=== PATIENT | female | born 1965 | race Caucasian/White ===

== ENCOUNTER 2018-02-05 20:08 | Emergency (ER) | payer MEDICARE, MEDICAID ==
[2018-02-05] MEDS ORDERED: IPRATROPIUM/ALBUTEROL (0.5MG/3MG) NEB INH ONE (21:16)
[2018-02-05] MEDS ORDERED: PREDNISONE 20 MG TAB PO ONE (21:16)
--- NOTE | 2018-02-05 21:24 | Emergency Department Record ---
History of Present Illness - General Chief Complaint: Cough Stated Complaint: CHEST CONGESTION,LT ANKLE PAIN Time Seen by Provider: 02/05/18 21:16 Source: Patient Mode of Arrival: Ambulatory Limitations: No limitations - History of Present Illness Initial Comments: 52 yo female presents with recurrent cough, wheezing, and feeling of shortness of breath. She was diagnosed one month ago with pneumonia with asthma like symptoms. She initially improved. Her cough returned about 5 days ago. It is non-productive. No fever or chills. She completed her antibiotics. She states it feels tight in between when she uses her nebulizer. She does get relief but it is only temporary. Additionally she twisted her ankle walking on uneven ground 2 days ago and has left lateral ankle tenderness and swelling. She has pain with weight bearing. MD Complaint: Cough, Nasal congestion, Other (twisted her ankle) -: Days(s) (5) Severity: Moderate Quality: Other Consistency: Intermittent Improves With: Other (Nebulizer temporarily) Worsens With: Other (coughing) Associated Symptoms: Cough, Nasal congestion, Rhinorrhea, Shortness of breath Treatments Prior to Arrival: Other (Home medications) - Related Data Home Medications Medication Instructions Recorded Confirmed Last Taken Benzonatate [Tessalon Perles] 100 mg PO TID PRN 02/05/18 02/05/18 Unknown Clonazepam [Klonopin] 0.5 mg PO TID PRN 02/05/18 02/05/18 Unknown Diphenhydramine HCl [Benadryl] 25 mg PO BID PRN 02/05/18 02/05/18 Unknown Hydroxyzine Pamoate [Vistaril] 50 mg PO BID 02/05/18 02/05/18 Unknown Mometasone Furoate [Nasonex] 17 gm IN DAILY 02/05/18 02/05/18 Unknown Montelukast Sodium 10 mg PO DAILY 02/05/18 02/05/18 Unknown Nystatin [Nystop] 100 units TOP BID 02/05/18 02/05/18 Unknown Omeprazole 40 mg PO BID 02/05/18 02/05/18 Unknown Oxcarbazepine [Trileptal] 300 mg PO BID 02/05/18 02/05/18 Unknown Oxybutynin Chloride [Ditropan Xl] 10 mg PO DAILY 02/05/18 02/05/18 Unknown Pnv,Calcium 72/Iron/Folic Acid 1 tab PO DAILY 02/05/18 02/05/18 Unknown [Preplus Ca-Fe 27 mg-FA 1 mg Tb] Pregabalin [Lyrica] 75 mg PO BID 02/05/18 02/05/18 Unknown Pregabalin [Lyrica] 150 mg PO BID 02/05/18 02/05/18 Unknown Promethazine HCl [Phenergan] 12.5 mg PO QID 02/05/18 02/05/18 Unknown Riboflavin [Vitamin B-2] 100 mg PO DAILY 02/05/18 02/05/18 Unknown Rizatriptan Benzoate [[employer]] 10 mg PO DAILY PRN 02/05/18 02/05/18 Unknown Sulindac 200 mg PO BID 02/05/18 02/05/18 Unknown Vortioxetine Hydrobromide 5 mg PO DAILY 02/05/18 02/05/18 Unknown [Trintellix] Previous Rx's Medication Instructions Recorded Azithromycin [Zithromax] 250 mg PO DAILY #4 tab 02/05/18 Prednisone [Prednisone 20Mg] 20 mg PO DAILY #5 tab 02/05/18 Allergies Allergy/AdvReac Type Severity Reaction Status Date / Time clarithromycin [From Biaxin] Allergy PT UNSURE Verified 02/05/18 20:46 OF REACTION codeine Allergy PT UNSURE Verified 02/05/18 20:46 OF REACTION doxycycline Allergy PT UNSURE Verified 02/05/18 20:46 OF REACTION ketorolac [From Toradol] Allergy PT UNSURE Verified 02/05/18 20:46 OF REACTION lamotrigine [From Lamictal] Allergy PT UNSURE Verified 02/05/18 20:46 OF REACTION lithium Allergy PT UNSURE Verified 02/05/18 20:46 OF REACTION Travel Screening - Travel/Exposure Within Last 30 Days Have you traveled within the last 30 days?: No - Travel/Exposure Within Last Year Have you traveled outside the [place] in the last year?: No - Additonal Travel Details Have you been exposed to anyone with a communicable illness?: No - Travel Symptoms Symptom Screening: None Review of Systems Constitutional: Denies: Chills, Fever, Night sweats, Weakness Eyes: Denies: Eye discharge ENT: Reports: Congestion. Denies: Ear pain, Epistaxis Respiratory: Reports: Cough, Dyspnea, Wheezes. Denies: Hemoptysis, Stridor Cardiovascular: Reports: Dyspnea on exertion, Edema (left ankle after twisting ) . Denies: Chest pain, Palpitations, Syncope Endocrine: Denies: Fatigue Gastrointestinal: Denies: Abdominal pain, Diarrhea, Nausea, Vomiting Genitourinary: Denies: Dysuria, Urgency Musculoskeletal: Denies: Arthralgia, Back pain, Joint swelling, Myalgia Skin: Denies: Bruising, Change in color, Rash Neurological: Denies: Headache Psychiatric: Denies: Anxiety Hematological/Lymphatic: Denies: Blood Clots, Easy bleeding, Easy bruising, Swollen glands Past Medical History - SOCIAL HISTORY Smoking Status: Never smoker Alcohol Use: None Drug Use: None - RESPIRATORY Hx Respiratory Disorders: Yes Hx Bronchitis: Yes (01/2018) Hx Pneumonia: Yes (01/2018) - CARDIOVASCULAR Hx Cardio Disorders: No - NEURO Hx Neuro Disorders: No - GI Hx GI Disorders: Yes Hx Reflux: Yes Hx Obstructive Bowel: Yes - Hx Bladder Problem: Yes Hx Kidney Stones: Yes - ENDOCRINE Hx Endocrine Disorders: No - MUSCULOSKELETAL Comment:: keegan ankle fusion - PSYCH Hx Psych Problems: Yes - HEMATOLOGY/ONCOLOGY Hx Hematology/Oncology Disorders: No Family Medical History Any Significant Family History?: No Physical Exam - General General Appearance: Alert, Oriented x3, Cooperative, No acute distress Limitations: No limitations - Head Head exam: Atraumatic, Normal inspection - Eye Eye exam: Normal appearance. negative: Conjunctival injection, Scleral icterus - ENT ENT exam: Normal exam Ear exam: Normal external inspection Nasal Exam: Normal inspection Mouth exam: Normal external inspection Teeth exam: Normal inspection - Neck Neck exam: Normal inspection, Full ROM. negative: Tenderness - Respiratory Respiratory exam: Decreased breath sounds, Rhonchi, Wheezes. negative: Normal lung sounds bilaterally, Accessory muscle use, Chest wall tenderness, Prolonged expiratory, Rales, Respiratory distress, Stridor - Cardiovascular Cardiovascular Exam: Regular rate, Normal rhythm, Normal heart sounds Peripheral Pulses: 2+: Radial (R), Radial (L), Dorsalis Pedis (L) - GI/Abdominal GI/Abdominal exam: Soft. negative: Tenderness - Rectal Rectal exam: Deferred - exam: Deferred - Extremities Extremities exam: Full ROM, Joint swelling, Normal capillary refill, Tenderness. negative: Normal inspection Image of Full Body: 1 - lateral ankle tenderness and mild swelling, stable ankle - Back Back exam: Denies: CVA tenderness (R), CVA tenderness (L) - Neurological Neurological exam: Alert, Normal gait, Oriented X3, Reflexes normal - Psychiatric Psychiatric exam: Normal affect, Normal mood - Skin Skin exam: Dry, Intact, Normal color, Warm Course Vital Signs 02/05/18 20:34 Temperature 98.1 F Pulse Rate 77 Respiratory 18 Rate Blood Pressure 149/79 Pulse Ox 100 - Reevaluation(s) Reevaluation #1: ekg 2040 NSR, rate 65, intervals OH 220, axis normal, ST normal, no acute changes 02/05/18 21:21 02/05/18 21:22 No acute changes on the vitals CXR, Ankle XR and Duoneb ordered 02/05/18 22:38 The patient was much improved after the Duoneb The CXR demonstrated Left perihilar streaking infiltrate. The ankle demonstrated and anterior deformity likely chronic with degenerative changes I discussed the results with the patient We discussed the home care, reasons for immediate re-evaluation and follow closely with her PCP 02/05/18 23:52 Disposition Disposition: Discharge Clinical Impression: Bronchitis Ankle sprain Qualifiers: Encounter type: initial encounter Involved ligament of ankle: unspecified ligament Laterality: left Qualified Code(s): S93.402A - Sprain of unspecified ligament of left ankle, initial encounter Disposition: Home, Self-Care Condition: (1) Good Instructions: Ankle Sprain (ED), Acute Bronchitis (ED) Additional Instructions: Ice the ankle to minimize swelling Take the antibiotic as directed Call your doctor tomorrow to schedule a recheck this week of your symptoms. Prescriptions: Azithromycin [Zithromax] 250 mg PO DAILY #4 tab Prednisone [Prednisone 20Mg] 20 mg PO DAILY #5 tab Forms: Patient Portal Access Time of Disposition: 22:41 Quality - Quality Measures Quality Measures: N/A - Blood Pressure Screening Does Patient Have Any of the Following: Active Dx of HTN Blood Pressure Classification: Pre-Hypertensive BP Reading Systolic Measurement: 124 Diastolic Measurement: 72 Screening for High Blood Pressure: Patient Exclusion, Hx of HTN [G9744]
[2018-02-05] MEDS ORDERED: AZITHROMYCIN 500 MG TABLET PO ONE (22:38)
--- NOTE | 2018-02-06 14:43 | RADIOLOGY REPORT ---
EXAM: CHEST, TWO VIEWS HISTORY: UNPRODUCTIVE COUGH FOR FIVE DAYS. TECHNIQUE: AP upright and lateral views of the chest were obtained. Comparison: Two view chest 08/28/11. FINDINGS: The heart size is within normal limits. Mild thoracic curve to the right as before. Slightly coarsened interstitial markings particularly on the left where there is probably some mild perihilar streaky infiltrate. No focal acute alveolar infiltrate identified and no pleural effusion or pneumothorax evident. IMPRESSION: THERE IS PROBABLY SOME MILD STREAKY PERIHILAR INFILTRATE ON THE LEFT. MILD THORACIC CURVE TO THE RIGHT BEFORE. JOB NUMBER: [id number] MTDD
--- NOTE | 2018-02-06 14:48 | RADIOLOGY REPORT ---
EXAM: LEFT ANKLE HISTORY: PATIENT TWISTED LEFT ANKLE TWO DAYS AGO WITH PAIN. TECHNIQUE: Three views of the left ankle were obtained. Comparison: No prior left ankle series. Encounter: Initial. FINDINGS: There is some diffuse soft tissue prominence about the ankle. Degenerative arthritis at the left ankle. There is some chronic appearing deformity along the anterior aspect of the ankle joint is seen in the lateral view. Comparison with old films would be useful to confirm a chronic appearance of this, however, no definite acute fracture is identified and no actual dislocation of the ankle is seen. There does appear to be some diffuse osteopenia suggesting osteoporosis. IMPRESSION: 1. SOME OSTEOPENIA. 2. DEGENERATIVE ARTHRITIS IN THE LEFT ANKLE WITH SOME CHRONIC APPEARING DEFORMITY ALONG THE ANTERIOR ASPECT OF THE ANKLE JOINT IN PARTICULAR. RECOMMEND COMPARISON WITH OLD FILMS. 3. NO DEFINITE ACUTE FRACTURE OR DISLOCATION OF THE ANKLE EVIDENT. 4. THERE IS PROBABLY SOME DIFFUSE SOFT TISSUE SWELLING AT THE ANKLE. JOB NUMBER: [id number] MTDD
== END 2018-02-05 23:06 | disposition home or self-care (01) ==
LOC: ER 20:08
DX: S93.402A Sprain of unspecified ligament of left ankle, initial encounter (principal); J20.9 Acute bronchitis, unspecified; R06.02 Shortness of breath; X50.1XXA Overexertion from prolonged static or awkward postures, initial encounter; Y93.01 Activity, walking, marching and hiking
CPT/HCPCS: 29425; 99284 ×2; 73610; 71046; 94640; 93005; 93010; J7512

== ENCOUNTER 2019-10-26 16:41 | Emergency (ER) | payer MEDICARE, MEDICAID ==
--- NOTE | 2019-10-26 17:00 | Emergency Department Record ---
History of Present Illness - General Chief Complaint: Cough Stated Complaint: COUGH Time Seen by Provider: 10/26/19 16:45 Source: Patient Mode of Arrival: Ambulatory Limitations: No limitations - History of Present Illness Initial Comments: The patient is here due to a one day hx of cough, congestion, mild ST and hoarse voice. She denies any fever, SOB, ARMIDA, or sputum production. MD Complaint: Cough, Nasal congestion, Rhinorrhea Onset/Timin -: Days(s) Severity scale (1-10): 6 Consistency: Constant - Related Data Previous Rx's Medication Instructions Recorded Albuterol Sulfate [Proair Hfa] 2 puff IH QID PRN #1 inhaler 10/26/19 Prednisone [Prednisone 20Mg] 40 mg PO DAILY #10 tab 10/26/19 Allergies Allergy/AdvReac Type Severity Reaction Status Date / Time clarithromycin [From Biaxin] Allergy PT UNSURE Verified 02/05/18 20:46 OF REACTION codeine Allergy PT UNSURE Verified 02/05/18 20:46 OF REACTION doxycycline Allergy PT UNSURE Verified 02/05/18 20:46 OF REACTION ketorolac [From Toradol] Allergy PT UNSURE Verified 02/05/18 20:46 OF REACTION lamotrigine [From Lamictal] Allergy PT UNSURE Verified 02/05/18 20:46 OF REACTION lithium Allergy PT UNSURE Verified 02/05/18 20:46 OF REACTION Travel Screening - Travel/Exposure Within Last 30 Days Have you traveled within the last 30 days?: No Review of Systems Constitutional: Reports: Malaise. Denies: Chills, Fever Eyes: Denies: Eye discharge ENT: Reports: Congestion Respiratory: Reports: Cough. Denies: Dyspnea Past Medical History - SOCIAL HISTORY Smoking Status: Never smoker - RESPIRATORY Hx Respiratory Disorders: Yes Hx Bronchitis: Yes (01/2018) Hx COPD: Yes Hx Pneumonia: Yes (01/2018) - CARDIOVASCULAR Hx Cardio Disorders: No - NEURO Hx Neuro Disorders: No - GI Hx GI Disorders: Yes Hx Reflux: Yes Hx Obstructive Bowel: Yes - Hx Bladder Problem: Yes Hx Kidney Stones: Yes - ENDOCRINE Hx Endocrine Disorders: No - MUSCULOSKELETAL Comment:: keegan ankle fusion - PSYCH Hx Psych Problems: Yes - HEMATOLOGY/ONCOLOGY Hx Hematology/Oncology Disorders: No Family Medical History Any Significant Family History?: No Physical Exam - General General Appearance: Alert, Oriented x3, Cooperative, No acute distress - Head Head exam: Atraumatic, Normocephalic - Eye Eye exam: Normal appearance, PERRL - ENT Throat exam: Tonsillar erythema (trace.). negative: Normal inspection, Tonsillomegaly, Tonsillar exudate - Neck Neck exam: Normal inspection, Full ROM. negative: Tenderness - Respiratory Respiratory exam: Normal lung sounds bilaterally. negative: Accessory muscle use, Rales, Respiratory distress, Rhonchi, Stridor, Wheezes - Cardiovascular Cardiovascular Exam: Regular rate, Normal rhythm, Normal heart sounds - GI/Abdominal GI/Abdominal exam: Soft, Normal bowel sounds. negative: Tenderness - Extremities Extremities exam: Normal inspection, Full ROM, Normal capillary refill. negative: Tenderness - Neurological Neurological exam: Alert, Normal gait. negative: Abnormal gait, Motor sensory deficit - Psychiatric Psychiatric exam: negative: Anxious Course Vital Signs 10/26/19 16:52 Temperature 98.6 F Pulse Rate [ 101 H Pulse Ox Probe] Respiratory 20 Rate Blood Pressure 171/95 [Left Arm] Pulse Ox 98 - Reevaluation(s) Reevaluation #1: I did discuss the neg Flu test with the patient and the fact the xray is neg. She appears to have a viral URI. We will place the patient on an inhaller and a short course of oral steroids and have her F/U with her PCP next week. 10/26/19 17:26 Medical Decision Making - Data Complexity MDM Data: Labs Ordered and/or Reviewed (Flu: neg.), X-Ray Ordered and/or Reviewed - Radiology Data Radiology results: Report reviewed (CXR: Neg.) Disposition Disposition: Discharge Clinical Impression: URI (upper respiratory infection) Qualifiers: URI type: croup Qualified Code(s): J05.0 - Acute obstructive laryngitis [croup] Disposition: Home, Self-Care Condition: (2) Stable Instructions: Cold Symptoms (ED) Additional Instructions: Please take the Inhaller and Prednisone as directed and use an OTC cough and cold medicine. Please see your doctor for recheck on Tuesday and return to the ER for any worsening issues. Prescriptions: Prednisone [Prednisone 20Mg] 40 mg PO DAILY #10 tab Albuterol Sulfate [Proair Hfa] 2 puff IH QID PRN #1 inhaler PRN Reason: Cough And Difficulty Breathing Forms: Patient Portal Access Time of Disposition: 17:28 Quality - Quality Measures Quality Measures: N/A - Blood Pressure Screening View Details: Yes Does Patient Have Any of the Following: Active Dx of HTN Blood Pressure Classification: Hypertensive Reading Systolic Measurement: 171 Diastolic Measurement: 95 Screening for High Blood Pressure: Patient Exclusion, Hx of HTN [G9744]
[2019-10-26 17:20] LABS: INFLUENZA A NEGATIVE (NEGATIVE); INFLUENZA B NEGATIVE (NEGATIVE)
--- NOTE | 2019-10-26 17:43 | RADIOLOGY REPORT ---
EXAMINATION: Two View Chest Radiographs EXAM DATE: 10/26/2019 5:21 PM TECHNIQUE: Frontal and lateral views INDICATION: Acute cough and wheezing COMPARISON: 02/05/2018 FINDINGS: 2 views. Clear lungs. No visible pneumothorax or pleural fluid. The heart and mediastinum have a norm al appearance. Stable mild rightward convexity midthoracic scoliosis. IMPRESSION: No sign of active cardiopulmonary disease. Dictated by: Otto Maurer MD on 10/26/2019 5:39 PM. .
== END 2019-10-26 17:59 | disposition home or self-care (01) ==
LOC: ER 16:41
DX: J05.0 Acute obstructive laryngitis [croup] (principal); J44.9 Chronic obstructive pulmonary disease, unspecified; I10 Essential (primary) hypertension
CPT/HCPCS: 71046; 87400; 99283

== ENCOUNTER 2019-10-28 00:15 | Emergency (ER) | payer MEDICARE, MEDICAID ==
--- NOTE | 2019-10-28 00:34 | Emergency Department Record ---
History of Present Illness - General Stated complaint: LEGS RED AND SWOLLEN Time Seen by Provider: 10/28/19 00:16 Source: Patient Mode of Arrival: Ambulatory Limitations: No limitations - History of Present Illness Initial comments: 54 yo female presents with a concern about left leg pain and bruising bilateral lower legs (L > R). The onset was this morning. She noted a few superficial bruises just today. She does not recall any injury. She has had about 2-3 days of congestion, hoarse voice, and cough that remains non productive. She reports a history of COPD. She has had surgery on that leg twice in the last one year. Her last surgery was March of 2019. She states she frequently get swelling and pain in that leg and ankle. She has a feeling of her heart racing at times. CXR was negative on 10/26/2019 in the ED. She was sent home on Prednisone and Albuterol. No fever. PCP is Dr Colmenares in [place]. She denies a history of prior DVT or PE. She talked to the sanitation lead doctor for her PCP at 11pm and was instructed to go to the ER for evaluation. MD Complaint: Extremity pain, Extremity swelling Location: Left, Lower Leg -: Yes Myalgia Radiation: Distal Quality: Aching Consistency: Constant Improves with: Nothing Worsens with: Palpation Associated Symptoms: Myalgias - Related Data Previous Rx's Medication Instructions Recorded Albuterol Sulfate [Proair Hfa] 2 puff IH QID PRN #1 inhaler 10/26/19 Prednisone [Prednisone 20Mg] 40 mg PO DAILY #10 tab 10/26/19 Allergies Allergy/AdvReac Type Severity Reaction Status Date / Time clarithromycin [From Biaxin] Allergy PT UNSURE Verified 02/05/18 20:46 OF REACTION codeine Allergy PT UNSURE Verified 02/05/18 20:46 OF REACTION doxycycline Allergy PT UNSURE Verified 02/05/18 20:46 OF REACTION ketorolac [From Toradol] Allergy PT UNSURE Verified 02/05/18 20:46 OF REACTION lamotrigine [From Lamictal] Allergy PT UNSURE Verified 02/05/18 20:46 OF REACTION lithium Allergy PT UNSURE Verified 02/05/18 20:46 OF REACTION Review of Systems Constitutional: Reports: Malaise, Weakness. Denies: Chills, Fever Eyes: Denies: Eye discharge ENT: Reports: Congestion. Denies: Epistaxis, Throat pain Respiratory: Reports: Cough, Wheezes. Denies: Dyspnea, Hemoptysis, Stridor Cardiovascular: Reports: Edema (Left lower leg), Palpitations. Denies: Chest pain, Syncope Endocrine: Denies: Fatigue, Polydipsia, Polyuria Gastrointestinal: Denies: Abdominal pain, Diarrhea, Nausea, Vomiting Genitourinary: Denies: Dysuria, Urgency Musculoskeletal: Reports: Myalgia. Denies: Arthralgia, Back pain, Neck pain Skin: Reports: Bruising. Denies: Change in color, Rash Neurological: Denies: Headache, Weakness Psychiatric: Denies: Anxiety Hematological/Lymphatic: Denies: Easy bleeding, Easy bruising Past Medical History - SOCIAL HISTORY Smoking Status: Never smoker Alcohol Use: None Drug Use: None - RESPIRATORY Hx Respiratory Disorders: Yes Hx Bronchitis: Yes (01/2018) Hx COPD: Yes Hx Pneumonia: Yes (01/2018) - CARDIOVASCULAR Hx Cardio Disorders: No - NEURO Hx Neuro Disorders: No - GI Hx GI Disorders: Yes Hx Reflux: Yes Hx Obstructive Bowel: Yes - Hx Bladder Problem: Yes Hx Kidney Stones: Yes - ENDOCRINE Hx Endocrine Disorders: No - MUSCULOSKELETAL Comment:: keegan ankle fusion - PSYCH Hx Psych Problems: Yes - HEMATOLOGY/ONCOLOGY Hx Hematology/Oncology Disorders: No Family Medical History Any Significant Family History?: No Family Hx Comment (NOT TO BE USED IN PLACE OF ITEMS BELOW): denies Physical Exam - General General Appearance: Alert, Oriented x3, Cooperative, No acute distress Limitations: No limitations - Head Head exam: Atraumatic, Normal inspection - Eye Eye exam: Normal appearance, PERRL. negative: Conjunctival injection, Scleral icterus - ENT ENT exam: Normal exam, Mucous membranes moist Ear exam: Normal external inspection Nasal Exam: Normal inspection Mouth exam: Normal external inspection Teeth exam: Other (No teeth) - Neck Neck exam: Normal inspection, Full ROM - Respiratory Respiratory exam: Normal lung sounds bilaterally. negative: Accessory muscle use, Decreased breath sounds, Prolonged expiratory, Rhonchi, Stridor, Wheezes - Cardiovascular Cardiovascular Exam: Regular rate, Normal rhythm, Normal heart sounds Peripheral Pulses: 2+: Radial (R), Radial (L) - GI/Abdominal GI/Abdominal exam: Soft. negative: Tenderness - Rectal Rectal exam: Deferred - exam: Deferred - Extremities Extremities exam: Calf tenderness (distal near the ankle), Full ROM, Joint swelling (left ankle), Normal capillary refill, Tenderness, Other (No definite asymmetry visually on examination except at the ankle. She has some tenderness at the ankle. This is in the area of her well healed surgical scars. No erythema). negative: Normal inspection, Pedal edema - Back Back exam: Denies: Normal inspection - Neurological Neurological exam: Alert, Oriented X3 - Psychiatric Psychiatric exam: Normal affect, Normal mood. negative: Agitated, Anxious - Skin Skin exam: Dry, Intact, Normal color, Warm Course Vital Signs 10/28/19 00:22 Temperature 98.1 F Pulse Rate [ 113 H Left] Respiratory 18 Rate Blood Pressure 137/107 [Left Arm] Pulse Ox 96 - Reevaluation(s) Reevaluation #1: 10/28/19 00:37 EKG #1: 00:29 Rate: 89 Rhythm: sinus [place]: normal Intervals: Qtc 477 ST segments: no acute abnormalities Prior: No changes from prior The calves were measured. No measurable difference from right to left calf. CXR on 10/26/2019 was negative for acute process 10/28/19 00:47 The CBC was reviewed The WBC is 10.4, the Plt Count is 404 (MCV is 75) No priors. 10/28/19 00:50 I was notified by the lab nurse that there will be significant delays in remainder of labs. 10/28/19 00:52 The D-Dimer was reviewed. It is negative at 0.44 The patient now informs me she was at [facility] about 2 weeks ago for evaluation. These records will be requested I discussed with the patient options at this time. I explained that her calves measure similar (within 1cm). There is not erythema. The small superficial bruises are on both legs and are non specific, few, small, and scattered. They are not indicative of DVT. I explained that her D-dimer is negative. She has chronic ankle pain and occasional swelling normally due to her prior surgery. My pretest probability for acute DVT was low and with a negative D-Dimer the options are DC after the other labs return or transfer to another hospital with US capabilities. With shared decision making she requests DC. She will return or be seen in the next 1-2 days if she has any concerns. 10/28/19 01:58 Records were obtained from [facility]. The patient had a post op visit with her orthopedic doctor on 10/24/2019. The same left ankle swelling was documented. Xray - no signs of hardware failure. Continue current level of activity. Follow up in 6 months. (Dr Johnson). The most recent Hgb was 10.9 Still delayed by lab downtime In light of the records that describe similar examination with chronic findings I believe this further decreases likelihood of DVT. 10/28/19 03:07 The BMP was reported K is 3.3 otherwise no acute changes. Medical Decision Making - Lab Data Result diagrams: 10/28/19 00:30 10/28/19 00:30 Disposition Disposition: Discharge Clinical Impression: Ankle pain, chronic, Ecchymosis Disposition: Home, Self-Care Condition: (1) Good Instructions: Acute Bronchitis (ED), Arthralgia (ED) Additional Instructions: Be seen or return in the next 1-2 days of you have any concerns about your legs Call you doctor to be seen early during the week for a recheck Be seen immediately if you are worse, redness develops, short of breath, chest pain Time of Disposition: 03:14 Quality - Quality Measures Quality Measures: N/A - Blood Pressure Screening Does Patient Have Any of the Following: No Blood Pressure Classification: Pre-Hypertensive BP Reading Systolic Measurement: 151 Diastolic Measurement: 80 Screening for High Blood Pressure: < Pre-Hypertensive BP, F/U Documented > [G8950] Pre-Hypertensive Follow-up Interventions: Referral to alternative/primary care provider.
[2019-10-28 00:42] LABS: ABSOLUTE NEUTROPHIL COUNT 5.19; BASO % 0.1 % (0-6); GRAN % 67.6 % (47-80); HEMOGLOBIN 10.4 gm/dl (11.6-16.0); LYMPH % 24.5 % (16-45); MEAN CELL VOLUME 75.6 fl (81-97); MEAN CORPUSCULAR HGB CONC 29.7 g/dl (32-36); MEAN PLATELET VOLUME 9.2 fl (7.4-10.4); MONO % 7.8 % (0-9); PLATELET COUNT 404 K/uL (130-400); RED BLOOD COUNT 4.63 M/uL (3.80-5.40); RED CELL DISTRIBUTION WIDTH 18.1 % (11.5-14.5); WHITE BLOOD COUNT W/O DIFF 7.7 K/uL (4.2-12.2)
[2019-10-28 00:45] LABS: MEAN CORPUSCULAR HEMOGLOBIN 22.4 pg (27-33)
[2019-10-28 00:53] LABS: PARTIAL THROMBOPLASTIN TIME 27.1 SECONDS (24.5-39.1); PROTHROMBIN TIME (PATIENT) 10.5 SECONDS (9.5-12.1)
[2019-10-28 02:59] LABS: BLOOD UREA NITROGEN 16 mg/dL (6-20); CREATININE 0.9 mg/dL (0.5-0.9); EST GLOMERULAR FILTRATION RATE > 60 mL/min
[2019-10-28 03:02] LABS: GLUCOSE,RANDOM 119 mg/dL (74-109)
[2019-10-28] MEDS ORDERED: POTASSIUM CHLORIDE 20 MEQ TABLET PO ONE (03:08)
== END 2019-10-28 03:22 | disposition home or self-care (01) ==
LOC: ER 00:15
DX: S90.02XA Contusion of left ankle, initial encounter (principal); M25.572 Pain in left ankle and joints of left foot; G89.29 Other chronic pain; M79.662 Pain in left lower leg; R60.0 Localized edema; R05 Cough; J44.9 Chronic obstructive pulmonary disease, unspecified
CPT/HCPCS: 80048; 83880; 84484; 85025; 85379; 85610; 85730; 93005; 93010; 99284